=== PATIENT | male | born 1960 | race Caucasian/White ===

== ENCOUNTER → 2020-06-19 10:11 | Outpatient (CLI) | payer MEDICARE, SELFPAY ==
--- NOTE | 2020-06-19 10:19 | CA_ITS ---
APPROVED REPORT EXAM: Comprehensive 2D, Doppler, and color-flow Echocardiogram Customer Service Driver: Jessica Henry RVT Ht: 6 ft 2 in Wt: 240lbs BSA: 2.35 BP: 110/70 mmHg Indications: CAD,HTN,SMOKER 2D Dimensions LVOT 2.27 cm (M/F) 1.5-2.5 M-Mode Dimensions RVDd 3.02 cm (0.9-2.6) LA Diam 3.68 cm (1.9-4.0) LVDd 5.44 cm (3.5-5.7) Ao Diam 3.37 cm (2.0-3.7) LVDs 3.82 cm (3.5-5.7) IVSd 1.40 cm (0.6-1.1) PWd 0.98 cm (0.6-1.1) EF (Teich) 56.40% FS 29.80% EDV (Teich) 143.70 mL ESV (Teich) 62.70 mL LV Diastology E Decel Time 150.00 (160-240 msec) E/A Ratio 0.6 MED E' 6.90 (< 7 cm/sec) E'/MED E' Ratio 7.70 (>14) LAT E' 9.10 (<10 cm/sec) E/LAT E' Ratio 5.84 (>14) Mitral Valve MV E Max Danie. 53.00 (40-130 cm/s) MV A Velocity 85.00 (40-130 cm/s) E/A Ratio 0.62 MV Decel. Time 150.00 (160-240 ms) MV PHT 44.00 ms Pulmonary Valve PV Peak Velocity 78.00 (50-150 cm/s) Tricuspid Valve TR P. Velocity 194.00 cm/s RAP Estimate 10.00 mmHg RVSP 25.10 mmHg Left Ventricle Left atrium is mildly enlarged, left ventricle is normal size, mild concentric left ventricular hypertrophy, visually estimated ejection fraction 50% with no regional wall motion abnormality, grade 1 diastolic dysfunction seen with tissue Doppler evidence of raise left atrial pressure. Right Ventricle Right atrium and right ventricle are normal size and contractility. Aortic Valve Aortic valve is minimally thickened and calcified, there is no aortic stenosis or aortic insufficiency. Mitral Valve Mitral valve is grossly normal, there is mild mitral regurgitation. Tricuspid Valve Tricuspid valve is grossly normal, there is mild tricuspid regurgitation, tricuspid regurgitation jet velocity is inadequate for calculation of the right ventricular systolic pressure. Pulmonic Valve Pulmonic valve is poorly visualized. Great Vessels Aortic root is normal size. Pericardium No significant pericardial effusion noted. Conclusion 1. Mildly enlarged left atrium, normal left ventricular size, mild concentric left ventricular hypertrophy, visually estimated ejection fraction 50% with no regional wall motion abnormality, grade 1 diastolic dysfunction seen without tissue Doppler evidence of raise left atrial pressure. 2. Mild mitral and tricuspid regurgitation. 3. No significant pericardial effusion noted. Electronically signed by : Leon Garcia, 06/20/2020 06:01:57
== END ==
PROVIDERS: PCP Emergency Medicine; Visit Provider Emergency Medicine
DX: R07.89 Other chest pain (principal); I25.10 Atherosclerotic heart disease of native coronary artery without angina pectoris; I10 Essential (primary) hypertension
CPT/HCPCS: 93306

== ENCOUNTER → 2020-07-17 06:51 | Outpatient (CLI) | payer MEDICARE, SELFPAY ==
--- NOTE | 2020-07-17 06:52 | NM_ITS ---
APPROVED REPORT Exam: Nuclear Stress Test Indication: Chest pain, CAD, HTN, DM, High cholesterol, Tobacco use, Family history Patient Location: Outpatient Stress Tech: Brenda Louie [place] Tech:Yamilex Lee, ARRT, RT (R)(N) Ht: 6 ft 2 in Wt: 245 lbs HR: 58 bpm BP: 122/75 mmHg BSA: 2.37 m2 BMI: 31.4 History: Chest pain, CAD, HTN, DM, High cholesterol, Tobacco use, Family history Procedure: Patient received a 0.4 mg of intravenous Lexiscan, resting heart rate 58 bpm, resting blood pressure 122/75 mmHg, with Lexiscan maximum heart rate achived was 91 bpm which is Less than 85 % of the maximum predicted heart rate and blood pressure was 102/68 mmHg. With Lexiscan, patient denied any complaint of chest pain. Electrocardiogram Resting electrocardiogram showed sinus rhythm nonspecific ST-T changes possible inferior infarct age-indeterminate premature ventricular complexes, with Lexiscan there is less than 1.[address] segment depression noted from the baseline EKG. The EKG portion of the Lexiscan is nondiagnostic. Cardiac Stress and Resting SPECT Images: Cardiac Stress and Resting SPECT images were obtained using technetium 99m Myoview 32.7 mCi stress and 10.54 mCi at rest. Gated SPECT for analysis of segmental wall motion and calculation of the ejection fraction also done. Cardiac stress and resting SPECT images show a moderate to large sized area of fixed defect involving the inferior, posterior basal, inferior apical and apical wall consistent with area of extensive myocardial scarring without significant amber-infarct ischemia, computer derived ejection fraction 34% with marked inferior, posterior basal, inferior apical and apical wall hypokinesis. Left ventricle is dilated with the stress and rest, right ventricle is mildly enlarged with normal contractility. Conclusion: 1. The EKG portion of the Lexiscan is nondiagnostic. 2. Scintigraphic evidence of myocardial scarring involving the inferior, posterior basal, inferior apical and apical wall without significant amber-infarct ischemia, computer derived ejection fraction is 34% with segmental wall motion abnormalities described above, left ventricle is dilated both stress and rest, right ventricle is mildly enlarged with normal contractility. 3. Abnormal Lexiscan Myoview study. Electronically signed by : Leon Garcia, 07/17/2020 20:50:15
--- NOTE | 2020-07-17 06:52 | CA_ITS ---
APPROVED REPORT Exam: Pharmacologic Technologist: Brenda Louie Ht: 6 ft 2 in Wt: 245 lbs BSA: 2.37 m2 HR: 58 bpm BP: 122/75 mmHg Indications: Chest pain Medical History Medications: Lisinopril,,,,, Metformin,,,,, Stress Test Details Test: LEXISCAN Reversal agent Aminophyline 100.0 mg, given intravenously for nausea. HR Resting HR: 58 bpm Max Heart Rate (APMHR): 160 bpm Max HR Achieved: 93 bpm Target HR (85% APMHR): 136 bpm % of APMHR: 58 Recovery HR: 58 bpm BP Resting BP: 122.0/75.0 mmHg Max BP: 122.0/75.0 mmHg Recovery BP: 122.0/81.0 mmHg ECG Clinical Exercise duration: 04:00 min Highest Stage Achieved: Exercise capacity: 1.0 METs Stress ECG Conclusion Resting EKG: Sinus bradycardia, PVC, ST-T abnormalities, cannot rule out old inferior IN. Symptoms: Shortness of air, malaise. No chest pain. Arrhythmias/Ectopy: Frequent isolated, monomorphic PVCs. ST-T Changes: Exaggeration of baseline ST-T abnormalities. Conclusion: Non-diagnostic Lexiscan stress. Myoview images reported separately. Test Summary REST . . . . . . . Resting REST 05:34 . . 58 . 122/ 75 . . Stage 1 . . . . . . . Myoview Injected Stage 1 01:00 . . 80 . . . . Stage 2 01:00 . . 91 . 102/ 68 . . Stage 3 01:00 . . 82 . 107/ 71 . . Stage 4 01:00 . . 72 . 117/ 76 . Stop exercise at 04:00 RECOVERY 01:00 . . 68 . . . . RECOVERY 02:00 . . 64 . 122/ 73 . . RECOVERY 03:00 . . 65 . 122/ 73 . . RECOVERY 04:00 . . 65 . 122/ 73 . . RECOVERY 05:00 . . 60 . 122/ 73 . . RECOVERY 06:00 . . 60 . 122/ 81 . . RECOVERY 06:03 . . 63 . 122/ 81 . . Electronically signed by : Leon Garcia, 07/17/2020 20:36:36
--- NOTE | 2020-07-17 08:29 | HMH.ITSHM ---
Current Home Medications as stated by this patient Jimmie La or customer engagement representative. []LISINOPRIL METFORMIN
== END ==
PROVIDERS: PCP Emergency Medicine; Visit Provider Urology
DX: E11.69 Type 2 diabetes mellitus with other specified complication (principal); E78.5 Hyperlipidemia, unspecified; F17.200 Nicotine dependence, unspecified, uncomplicated; I10 Essential (primary) hypertension; I25.118 Atherosclerotic heart disease of native coronary artery with other forms of angina pectoris; R94.31 Abnormal electrocardiogram [ECG] [EKG]; R07.9 Chest pain, unspecified; Z79.84 Long term (current) use of oral hypoglycemic drugs
CPT/HCPCS: 78452; 93017; A9502; J2785

== ENCOUNTER 2020-07-21 17:56 | Observation (INO) | payer MEDICARE, SELFPAY ==
[2020-07-21] VITALS (9 sets, daily range): BP systolic 89–137; BP diastolic 54–93; PULSE 57–93; RESP 14–19; TEMP 36.6–37.2; O2SAT 95–99; BMI 29.9; BMI 28.4
--- NOTE | 2020-07-21 18:10 | HMH.EDGENADL ---
ED Disposition Clinical Impression: Unstable angina Disposition: Admitted As Inpatient Condition on Discharge: Fair Referrals: PCP,No [Primary Care Provider] - - Critical Care Critical Care Time: No Attestation: On , the high probability of a clinically significant, sudden or life threatening deterioration of the following system(s) required my full and direct attention, intervention and personal management. The time I documented below is in addition to time spent performing reported procedures but includes the following listed in this critical care notation. Medical Decision Making - Ernesto Inquiry Pt receiving controlled substance: No Vital Signs: 07/21/20 17:57 Temperature 99.0 F Temperature Source Oral Pulse Rate [Right Radial] 93 H Respiratory Rate 18 Blood Pressure [Right Arm] 134/93 H Blood Pressure Mean [Right Arm] 106 Blood Pressure Source [Right Arm] Automatic Cuff Blood Pressure Position [Right Arm] Sitting 02 Sat by Pulse Oximetry 96 Oxygen Delivery Method Room Air - Lab Data Lab Results 07/21/20 18:07: WBC 10.7, RBC 5.19, Hgb 15.0, Hct 44.7, MCV 86.2, MCH 29.0, MCHC 33.6, RDW 14.1, Plt Count 272, MPV 7.6, Neut % (Auto) 69.8, Lymph % (Auto) 22.9, [place] % (Auto) 4.6, Eos % (Auto) 2.4, Baso % (Auto) 0.3, Neut # (Auto) 7.5, Lymph # (Auto) 2.5, [place] # (Auto) 0.5, Eos # (Auto) 0.3, Baso # (Auto) 0.0 07/21/20 18:07: Sodium 141, Potassium 3.6, Chloride 105, Carbon Dioxide 25, Anion Gap 14.6, BUN 8 L, Creatinine 1.00, Estimated Creat Clear 121, Estimated GFR 76, Est GFR ( Amer) 92, Glucose 112 H, Calcium 9.8, Troponin I 0.05 H Result diagrams: 07/21/20 18:07 07/21/20 18:07 Orders (Tests/Meds): ED MEDICATIONS Generic Name Dose Route Start Last Admin Trade Name Freq PRN Reason Stop Dose Admin Bisoprolol Fumarate 5 mg 07/21/20 19:05 Bisoprolol 5mg Tablet PO 08/20/20 19:04 DAILY MELLISA Nitroglycerin 0.4 mg 07/21/20 18:42 Nitroglycerin 0.4mg Sl Tablet SL 08/20/20 18:41 Q5MINP PRN Chest Pain Nitroglycerin 1 gm 07/21/20 19:15 Nitroglycerin 1 Gm Ointment TD 08/20/20 19:14 Q6H MELLISA Discontinued Medications Generic Name Dose Route Start Last Admin Trade Name Freq PRN Reason Stop Dose Admin Aspirin 324 mg 07/21/20 18:25 07/21/20 18:38 Aspirin 81mg Chewable Tablet PO 07/21/20 18:26 324 mg ONCE ONE Administration Ondansetron HCl 4 mg 07/21/20 18:42 07/21/20 18:50 Ondansetron 4mg/2ml Vial IV 07/21/20 18:43 4 mg ONCE ONE Administration ORDERS Category Date Time Status XR chest 2V Stat Exams 07/21/20 18:25 Taken Troponin I Q3H Lab 07/21/20 21:30 Ordered Troponin I Q3H Lab 07/22/20 00:30 Ordered - ECG Data Tracing #1 EKG interpreted by Erasmo Mckeon MD: Rhythm: sinus Rate: 90 [place]: normal Ectopy: none Conduction: normal ST Segment Changes: none T Wave Changes: none Q Waves: Inferior No evidence of acute ischemia or injury Prior electrocardiagrams reviewed. No change from prior tracings. - Physician Consults Physician Consulted: Calixto Time: 19:06 Reason -: Cardiology Eval/Care Comment/Response: Recommends admission. Bisoprolol 5 mg now and daily. Additional Consult: Shelly - FELECIA Score for Non-Stemi Age of Patient: 60-69 years old Heart Rate: 90-109 bpm Systolic Blood Pressure: 120-139 mmhg Serum Creatinine: 0.80-1.19 mg/dl CHF [place] Class: I-No CHF Other Risk Factors: Elevated Cardiac Enzymes or Biomarkers Non-Stemi Risk Score: 128 Medical Decision Narrative: Heart Pathway Score is:5 High Risk General Adult HPI - General Stated complaint: CP Time Seen by Provider: 07/21/20 18:20 - History of Present Illness HPI narrative: Patient arrives by ambulance with complaint of chest pain. Says the chest pain started an hour ago while at rest. Describes the pain in his anterior chest radiating to his right jaw. Currently 2/10, was 8/10 at onset. Denies shortness of breath
--- NOTE | 2020-07-21 18:25 | XR_ITS ---
PROCEDURE: XR CHEST 2V CLINICAL HISTORY: chest pain Heart disease, smoker COMPARISON: No exams were available for comparison FINDINGS: The cardiomediastinal silhouette and pulmonary vascularity are within normal limits. Minimal atelectatic or fibrotic change in the left lung base. There are old fractures of the right 4th and 5th ribs. There are degenerative changes in the thoracic spine. IMPRESSION: Minimal atelectatic or fibrotic change in the left lung base otherwise negative Dictated by: Rosales Rosa MD 07/22/2020 07:10 Rosales Rosa MD in OV 07/22/2020 07:10
--- NOTE | 2020-07-21 18:26 | ECG_ITS ---
APPROVED REPORT Exam: Resting ECG HR:90 bpm ECG Measurements Heart Rate 90 AXES VA 178 P 93 QRSd 108 QRS 75 QT 380 T 27 QTc 464 Conclusion Normal sinus rhythm Inferior infarct, age undetermined Abnormal ECG Electronically signed by : Dony Rosas, 07/22/2020 08:39:30
[2020-07-21 18:33] LABS: Basophils % 0.3 % (0.1-2.0); Eosinophils # 0.3 K/mm3 (0.0-0.4); Eosinophils % 2.4 % (0.1-12.0); Hematocrit 44.7 % (42.0-52.0); Lymphocytes # 2.5 K/mm3 (0.7-4.5); Lymphocytes % 22.9 % (10-50); Mean Corpuscular HGB Conc 33.6 g/dL (31.8-35.4); Mean Corpuscular Volume 86.2 fl (80-94); Mean Platelet Volume 7.6 fl (7.4-10.4); Monocytes # 0.5 K/mm3 (0.1-1.0); Monocytes % 4.6 % (1.7-9.3); Neutrophils # 7.5 K/mm3 (1.8-7.8); Neutrophils % 69.8 % (37.0-80.0); Platelet Count 272 K/mm3 (142-424); Red Blood Count 5.19 M/mm3 (4.60-6.20); Red Cell Distribution Width 14.1 % (11.5-17.5); White Blood Count 10.7 K/mm3 (4.8-10.8)
[2020-07-21 18:38] LABS: Anion Gap 14.6 mEq/L (5-15); Blood Urea Nitrogen 8 mg/dl (9-20); Calcium 9.8 mg/dl (8.4-10.2); Carbon Dioxide 25 mmol/L (22.0-30.0); Chloride 105 mmol/L (98-107); Creatinine Clearance Estimated 121 mL/min (50-200); Estimated Glomerular Filt Rate 76 ml/min (>60); GFR (African American) 92 ML/MIN (>60); Glucose 112 mg/dl (74-100); Potassium 3.6 mmoL/L (3.5-5.1); Sodium 141 mmol/L (136-145)
--- NOTE | 2020-07-21 18:43 | PC.NURSE ---
Pt keeps removing his vs monitors and running out to the bathroom. It has been explained to him that he needs to leave them on so we can help him feel better. He verbalized understanding but continues to remove everything.
[2020-07-21 18:50] LABS: Troponin I 0.05 ng/ml (0.00-0.034)
[2020-07-21 19:19] LABS: Adenovirus,PCR Not Detected (NotDetected); Bordetella Pertussis Not Detected (NotDetected); Chlamydophila Pneumoniae, PCR Not Detected (NotDetected); Coronavirus 19, PCR Not Detected (NotDetected); Coronavirus 229E Not Detected (NotDetected); Coronavirus NL63 Not Detected (NotDetected); Coronavirus OC43 Not Detected (NotDetected); Coronovirus HKU1,PCR Not Detected (NotDetected); Human Metapneumovirus Not Detected (NotDetected); Influenza A, PCR Not Detected (NotDetected); Influenza AH1, 2009 Not Detected (NotDetected); Influenza AH1, PCR Not Detected (NotDetected); Influenza AH3,PCR Not Detected (NotDetected); Influenza B, PCR Not Detected (NotDetected); Mycoplasma Pneumoniae, PCR Not Detected (NotDetected); Parainfluenza 1, PCR Not Detected (NotDetected); Parainfluenza 2, PCR Not Detected (NotDetected); Parainfluenza 3, PCR Not Detected (NotDetected); Parainfluenza 4, PCR Not Detected (NotDetected); Respiratory Syncytial Virus Not Detected (NotDetected); Rhinovirus/Enterovirus Not Detected (NotDetected)
--- NOTE | 2020-07-21 21:35 | PC.NURSE ---
patient up to floor via wheelchair,RN.
[2020-07-21 22:28] LABS: Troponin I 0.33 ng/ml (0.00-0.034)
[2020-07-21 22:40] LABS: POC Glucose,Bedside 197 (70-110)
--- NOTE | 2020-07-21 22:41 | PC.NURSE ---
notified of troponin
--- NOTE | 2020-07-21 23:00 | ECG_ITS ---
APPROVED REPORT Exam: Resting ECG HR:55 bpm ECG Measurements Heart Rate 55 AXES FL 180 P 43 QRSd 112 QRS 58 QT 436 T 6 QTc 417 Conclusion Sinus bradycardia Inferior infarct, age undetermined Abnormal ECG Electronically signed by : Dony Rosas, 07/22/2020 08:39:06
--- NOTE | 2020-07-21 23:48 | PC.NURSE ---
Repeat EKG obtained per MD Bravo order. Read by Shelly and MD Rivera in ER. No new changes. Shelly ordered loading dose of Brilinta 180 mg PO. Orders carried out. Pt is not c/o any CP at this time.
[2020-07-22] VITALS: PULSE 50
[2020-07-22 01:10] LABS: Troponin I 0.62 ng/ml (0.00-0.034)
--- NOTE | 2020-07-22 02:43 | PC.NURSE ---
Pt is resting in bed. C/O gastric discomfort. Was given some milk and symptoms improved. Pt states that his stomach feels better. Repeat troponin was called back to MD Bravo earlier. Protonix 40 mg IV daily and lovenox 100 mg IV Q12 hr was ordered and carried out. Pt is sinus shanell on telemetry. BP is trending down. Of note, He is on nitro paste. Will continue to monitor VS and symptoms. Per MD Bravo, if pt becomes symptomatic, obtain additional troponin and ekg. AM troponin ordered.
[2020-07-22 04:00] VITALS: BP 91/42; PULSE 50; PULSE 51; RESP 19; TEMP 36.9; O2SAT 99
[2020-07-22 04:54] VITALS: BMI 28.3
[2020-07-22 05:24] LABS: POC Glucose,Bedside 135 (70-110)
[2020-07-22 08:00] VITALS: BP 95/50; PULSE 50; PULSE 55; RESP 18; TEMP 37; O2SAT 98
[2020-07-22 08:00] LABS: Troponin I 0.65 ng/ml (0.00-0.034)
--- NOTE | 2020-07-22 09:20 | HMH.HP ---
*Admission Date: 07/21/20 *Chief complaint: chest pain *History of present illness: this pt with hx of abn myoview presents to the ed -patient arrives by ambulance with complaint of chest pain. Says the chest pain started an hour ago while at rest. Describes the pain in his anterior chest radiating to his right jaw. Currently 2/10, was 8/10 at onset. Denies shortness of breath but he did have nausea with it. States he has coronary artery disease with stent placement proximately 15 years ago. Just recently saw Dr. De Luna in the office couple of days ago and has been set up for a left heart cath. States his ejection fraction is 35%. States he also had an episode of chest pain last night that lasted 2-1/2 hours. He had diaphoresis with that, but not today. The patient is a smoker. He is treated for hypertension and hyperlipidemia and diabetes. pt was admitted for eval and treatment [facility] History I have reviewed the patient's past medical history: Yes Medical History: Reports:: Anxiety, Coronary Artery Disease, Diabetes Mellitus Type 2, Gastroesophageal Reflux Disease(GERD), Hyperlipidemia, Hypertension Denies:: Cancer, MRSA *Have you ever received a pneumonia vaccine?: No *Have you received a flu vaccine this season?: No Laterality Cases: Bilateral: Tonsillectomy Other Surgeries: Yes: No Previous Surgery, Cardiac Catheterization Amputation: No - *Social History Last grade of school completed: Advanced degree Smoking Status: Current every day smoker Tobacco Type: cigarettes # Packs/Day (cigarettes): 1 Alcohol Intake: former Substance Use Type: prescription drug *Occupational Status:: disabled Housing: custodial Household Members: none *Travel in the last 8 weeks: None - Psychiatric History Pschychiatric History:: Reports:: Anxiety Family Hx:: Diabetes, Heart Attack, Hyperlipidemia, Hypertension, Stroke, Substance abuse, Alcoholism, Mental illness Review of Systems - Review of Systems Review of systems:: pertinent systems reviewed and negative unless documented below - Constitutional Denies fever(s) - Eyes Denies change in vision - ENT Denies sore throat - *Cardiovascular Reports chest pain at rest, Reports shortness of breath - *Respiratory Denies cough - *Gastrointestinal Denies abdominal pain - *Musculoskeletal Denies joint pain - Integumentary/Breasts Denies rash - *Neurologic Denies seizure-like activity - Psychiatric Denies confusion Meds Home Medications Medication Instructions Recorded Confirmed Type lisinopril 10 mg tablet 10 mg PO DAILY 06/25/20 07/21/20 History metformin 500 mg tablet 500 mg PO BID 06/25/20 07/21/20 History Atorvastatin Calcium [Lipitor 20mg 20 mg PO HS 07/21/20 07/21/20 History Tab] Benztropine Mesylate 0.5 mg PO BID 07/21/20 07/21/20 History PARoxetine HCl [Paxil] 20 mg PO DAILY 07/21/20 07/21/20 History Quetiapine Fumarate 200 mg PO HS 07/21/20 07/21/20 History Allergies Allergy/AdvReac Type Severity Reaction Status Date / Time No Known Allergies Allergy Verified 07/19/20 09:13 Exam Vital signs and Labs for Last 24 Hours: Temp Pulse Resp BP Pulse Ox 98.6 F 55 L 18 95/50 L 98 07/22/20 08:00 07/22/20 08:00 07/22/20 08:00 07/22/20 08:00 07/22/20 08:00 Laboratory Results - last 24 hr 07/21/20 18:07: WBC 10.7, RBC 5.19, Hgb 15.0, Hct 44.7, MCV 86.2, MCH 29.0, MCHC 33.6, RDW 14.1, Plt Count 272, MPV 7.6, Neut % (Auto) 69.8, Lymph % (Auto) 22.9, [place] % (Auto) 4.6, Eos % (Auto) 2.4, Baso % (Auto) 0.3, Neut # (Auto) 7.5, Lymph # (Auto) 2.5, [place] # (Auto) 0.5, Eos # (Auto) 0.3, Baso # (Auto) 0.0 07/21/20 18:07: Sodium 141, Potassium 3.6, Chloride 105, Carbon Dioxide 25, Anion Gap 14.6, BUN 8 L, Creatinine 1.00, Estimated Creat Clear 121, Estimated GFR 76, Est GFR ( Amer) 92, Glucose 112 H, Calcium 9.8, Troponin I 0.05 H 07/21/20 19:14: Chlamy pneumoniae PCR Not detected, Adenovirus (PCR) Not detected, B. pertussis DNA (P
[2020-07-22 09:28] LABS: Alanine Aminotransferase 15 U/L (12-78); Albumin Level 3.7 g/dl (3.5-5.0); Alkaline Phosphatase 71 U/L (38-126); Aspartate Amino Transferase 25 U/L (17-59); Bilirubin,Direct 0.3 mg/dl (0.0-0.4); Bilirubin,Indirect 0.3 mg/dL (0.0-0.9); Bilirubin,Total 0.6 mg/dl (0.2-1.3); Bilirubin,Unconjugated 0.3 mg/dL (0.0-1.1); Total Protein,Serum 6.5 g/dl (6.3-8.2)
[2020-07-22 12:00] VITALS: PULSE 60
--- NOTE | 2020-07-22 12:22 | HMH.PHAVTE ---
[facility] Pharmacy VTE Monitoring - Patient Demographics Admission date: 07/21/20 Report Date: 07/22/20 Time: 12:22 Allergies/Adverse Reactions: Patient Allergies No Known Allergies Allergy (Verified 07/19/20 09:13) Height: 1.91 m Weight: 103.573 kg Patient Problems: Current Active Problems Unstable angina (Acute) Non-ST elevated myocardial infarction (non-STEMI) (Acute) Overweight (BMI 25.0-29.9) (Acute) Right bundle branch block (Chronic) Tobacco dependence syndrome (Chronic) HLD (hyperlipidemia) (Chronic) HTN (hypertension) (Chronic) Diabetes mellitus (Chronic) Coronary artery disease (Chronic) - VTE Risk Labs: VTE Related Lab Results Hgb 15.0 g/dL (14.1-18.0) 07/21/20 18:07 Hct 44.7 % (42.0-52.0) 07/21/20 18:07 Plt Count 272 K/mm3 (142-424) 07/21/20 18:07 BUN 8 mg/dl (9-20) L 07/21/20 18:07 Creatinine 1.00 mg/dl (0.66-1.25) 07/21/20 18:07 Estimated Creat Clear 121 mL/min (50-200) 07/21/20 18:07 VTE Risk Level: Moderate Risk - Prophylaxis VTE Prophylaxis Ordered?: Yes Types of VTE Prophylaxis: TEDS Knee High, Pharmacological Location of Applied Device: Bilateral Lower Extremeties Pharmacologic Type: Enoxaparin
--- NOTE | 2020-07-22 12:23 | HMH.PHAINT ---
MEDICATION RECONCILIATION COMPLETED ON PATIENT USING EXTERNAL FILL HISTORY FROM PHARMACY. -NASREEN EWING, BRYAND
[2020-07-22 12:36] LABS: POC Glucose,Bedside 127 (70-110)
[2020-07-22 16:00] VITALS: BP 105/60; PULSE 50; PULSE 80; RESP 20; TEMP 36.7; O2SAT 98
[2020-07-22 17:16] LABS: POC Glucose,Bedside 210 (70-110)
--- NOTE | 2020-07-22 17:49 | PC.NURSE ---
Pt has been pleasant and cooperative this shift. A&O X4. No complaints of pain or SOA. Pt is on room air with sats. >90%. Telemetry reveals NSR/SB. Lungs CTA. Skin is C/D/I. No edema noted. Pt ambulates independently to/from the bathroom, throughout the room, and in the hallway. 20 G peripheral IV in the RT AC is patent and SL. VSS. Call light within reach. Will continue to monitor.
[2020-07-22 20:00] VITALS: BP 133/74; PULSE 55; PULSE 60; RESP 17; TEMP 36.6; O2SAT 99
[2020-07-22 21:11] LABS: POC Glucose,Bedside 131 (70-110)
[2020-07-23] VITALS (22 sets, daily range): BP systolic 90–135; BP diastolic 51–90; PULSE 50–82; RESP 13–20; TEMP 36.3–37; O2SAT 95–100; BMI 29.1; BMI 29.0
--- NOTE | 2020-07-23 05:29 | PC.NURSE ---
pt is AxOx4, no complaints of SOA or chest pain, remains on room air with sats 95-99%, lungs CTA, HR 55-57, telemetry shows NSR and SB
[2020-07-23 07:04] LABS: POC Glucose,Bedside 137 (70-110)
--- NOTE | 2020-07-23 08:01 | HMH.CNCARD ---
History of Present Illness Consult date: 07/23/20 Requesting physician: Chuckie Rivera Consult reason: chest pain Chief complaint: chest pain Additional Medical History:: 1. 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 NonStemi (07/21/20) a. Elevated troponins 3. Coronary Artery Disease a. Stent (15 years ago) 4. Cardiomyopathy a. EF 35% (06/17) 5. Type 2 Diabetes 6. Essential hypertension 7. Hyperlipidemia a. On statin therapy. 8. Tobacco cessation 9. Abnormal cardiovascular study a. 07/19: Abnormal stress test History of present illness: 60-year-old male presented to ED on 07/21/20 with chest pain accompanied with nausea. Patient stated he had been having some anterior chest wall pain radiating to his right jaw 1 hour prior to presenting to the emergency room. Patient stated his chest pain on a pain scale was 8/10. Patient stated his chest pain was finally relieved when he came to the emergency room. Patient does have history of coronary artery disease. Patient stated he had stent placement 15 years ago at [facility]. Patient denies chest pain, tightness or pressure. Patient denies shortness of breath. No swelling of the lower extremities noted. Patient denies dizziness or palpitations. Patient does have history of diabetes type 2, hypertension, hyperlipidemia and cardiomyopathy. Patient was last seen in cardiology office in 07/19/20, to discuss abnormal stress test and abnormal echocardiogram. Patient admits to smoking for over 20+ years. Patient states he smokes at least 1 pack of cigarettes per day. Patient states history of drug and alcohol abuse in 2004. Denies any intake of drug or alcohol abuse since that time. Initial ED work-up was performed. Labs were unremarkable. Patient noted to have elevated troponins. Last troponin was elevated at 0.65. Chest x-ray revealed minimal atelectasis in the left lung base otherwise negative. Initial EKG revealed sinus rhythm with no ectopy or ST ischemia. Myoview stress test: Conclusion: 1. The EKG portion of the Lexiscan is nondiagnostic. 2. Scintigraphic evidence of myocardial scarring involving the inferior, posterior basal, inferior apical and apical wall without significant amber-infarct ischemia, computer derived ejection fraction is 34% with segmental wall motion abnormalities described above, left ventricle is dilated both stress and rest, right ventricle is mildly enlarged with normal contractility. 3. Abnormal Lexiscan Myoview study. Echo: Conclusion 1. Mildly enlarged left atrium, normal left ventricular size, mild concentric left ventricular hypertrophy, visually estimated ejection fraction 50% with no regional wall motion abnormality, grade 1 diastolic dysfunction seen without tissue Doppler evidence of raise left atrial pressure. 2. Mild mitral and tricuspid regurgitation. 3. No significant pericardial effusion noted. Due to typical angina and known history of coronary artery disease, would recommend a left heart catheterization. Discuss the risk and benefits of the left heart catheterization through right wrist access with patient. Patient is agreeable to procedure. Discussed plan of care with Dr. Rivera. Pending on the results of the left heart catheterization, may recommend medication and treatment regimen changes. Thank you for allowing cardiology to participate in the care of this patient. SCAI: A (8) Indication 55. [facility] History I have reviewed the patient's past medical history: Yes Medical History: Reports:: Anxiety, Coronary Artery Disease, Diabetes Mellitus Type 2, Gastroesophageal Reflux Disease(GERD), Hyperlipidemia, Hypertension Denies:: Cancer, MRSA *Have you ever received a pneumonia vaccine?: No *Have you received a flu vaccine this season?: No Laterality Cases: Bilateral: Tonsillectomy Other Surgeries: Yes: No Previous Surgery, Cardiac Catheterizat
--- NOTE | 2020-07-23 09:05 | IR_ITS ---
APPROVED REPORT Patient Location: Inpatient Ecological Modeler: ROLO Olvera RT (R) PROCEDURES Left heart catheterization Left ventriculogram Selective coronary angiogram Drug-eluting stent deployment to the proximal dominant circumflex artery INDICATION Unstable angina, Coronary artery disease Informed consent was obtained prior to the procedure. COMPLICATIONS NONE Estimated Blood Loss: LESS THAN 10 ML TECHNIQUE One percent lidocaine used to anesthetize the right anterior aspect of the wrist. The right radial artery was accessed via the Seldinger technique. A 6 [place] sheath was placed in the right radial artery. 2.5 mg of verapamil, 800 mcg of nitroglycerin, 1mg Lidocaine and 5000 U Heparin were given through the arterial sheath. The trap catheter and a 4 [place] JL4 catheter used to perform left heart catheterization left ventriculogram and selective coronary angiogram. At the end of the diagnostic angiogram therapeutic heparin was administered giving a therapeutic ACT and an EBU 375 guide catheter was used to intubate the left main artery. The Choice PT wire was placed distally. A 3 mm x 38 mm resolute [place] stent was deployed at 12 ko reducing the stenosis. An additional 3 mm x 15 mm resolute [place] stent was then placed distal to the first stent yet still overlapping it at 14 ko. The balloon was brought back and deployed at 1416 and 18 ko each time coming more more proximally until the balloon wind up in the very proximal segment of the circumflex artery. After achieving excellent angiographic results with BETTY-3 flow down the vessel before and after the procedure the apparatus was removed the sheath was removed and hemostasis was achieved using TR banding patient was transferred to the postop holding area stable addition ANGIOGRAPHIC RESULTS The left main artery Normal The left anterior descending artery Has a stent in the proximal through mid segment which is widely patent free of in-stent restenosis with excellent proximal distal transitioning. A large stent originates off the first diagonal artery and is widely patent with excellent transitioning distally. The circumflex artery Is a large codominant vessel with an 80% concentric stenosis at the origin of the large first obtuse marginal artery The right coronary artery Is a codominant vessel and has proximal 10 to 20% stenosis followed by mid vessel stent which is widely patent free of in-stent restenosis. Distally this transitions into a 20 to 30% stenosis followed by an additional 30 to 40% stenosis The LEUNG ventriculogram reveals Not performed The left ventricular end-diastolic pressure Not measured IMPRESSION Severe stenosis in a large first obtuse marginal artery of a codominant circumflex artery Successful stenting of the proximal mid circumflex artery extending into the large obtuse marginal artery reducing the severe stenosis to 0% Widely patent proximal and mid LAD stents with widely patent bifurcating first diagonal artery stents Widely patent stents in a codominant mid to distal right coronary artery PLAN 1. Dual antiplatelet therapy 2. LDL less than 55 3. Cardiac rehabilitation 4. Avoidance of tobacco products 5. Risk factor modification Electronically signed by : Pablo De Luna, 07/23/2020 14:42:02
[2020-07-23 09:33] LABS: Basophils % 0.3 % (0.1-2.0); Eosinophils # 0.2 K/mm3 (0.0-0.4); Eosinophils % 2.6 % (0.1-12.0); Hematocrit 42.2 % (42.0-52.0); Hemoglobin 14.3 g/dL (14.1-18.0); Lymphocytes # 1.6 K/mm3 (0.7-4.5); Lymphocytes % 20.1 % (10-50); Mean Corpuscular HGB Conc 33.8 g/dL (31.8-35.4); Mean Corpuscular Hemoglobin 29.2 pg (27.0-31.2); Mean Corpuscular Volume 86.4 fl (80-94); Mean Platelet Volume 8.4 fl (7.4-10.4); Monocytes # 0.4 K/mm3 (0.1-1.0); Monocytes % 5.3 % (1.7-9.3); Neutrophils # 5.6 K/mm3 (1.8-7.8); Neutrophils % 71.6 % (37.0-80.0); Platelet Count 231 K/mm3 (142-424); Red Blood Count 4.89 M/mm3 (4.60-6.20); White Blood Count 7.9 K/mm3 (4.8-10.8)
[2020-07-23 09:48] LABS: Anion Gap 10.2 mEq/L (5-15); Blood Urea Nitrogen 9 mg/dl (9-20); Calcium 9.5 mg/dl (8.4-10.2); Carbon Dioxide 29 mmol/L (22.0-30.0); Chloride 106 mmol/L (98-107); Creatinine Clearance Estimated 107 mL/min (50-200); Estimated Glomerular Filt Rate 68 ml/min (>60); GFR (African American) 83 ML/MIN (>60); Glucose 136 mg/dl (74-100); Potassium 4.2 mmoL/L (3.5-5.1); Sodium 141 mmol/L (136-145)
--- NOTE | 2020-07-23 10:06 | SW/DCPLANNER ---
Addendum entered by Hyun Hung 07/24/20 10:53: I have set up [facility] [employer] for this patient. [facility] has stated that patient will need to be private pay and they will pay [facility] [employer] once patient returns to facility. Addendum entered by Hyun Hung 07/24/20 09:31: Per [facility] with [facility] this patient can discharge back without another COVID swab. Patient had a COVID swab on 07/21 which was negative and will not require another swab. I will set up [employer] once patient is ready per nursing. Patient will discharge today. Original Note: This patient currently resides at [facility]. I have informed Baltazar/Lisa rodríguez that this patient will be having a heart cath today. I will follow up with both once I have heart cath results are back.
--- NOTE | 2020-07-23 11:44 | PC.NURSE ---
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
--- NOTE | 2020-07-23 14:38 | HMH.ACPN2 ---
Internal Medicine - PN: Subj *Date: 07/23/20 *Time: 08:15 Exam Vital signs and Labs for Last 24 Hours: Temp Pulse Resp BP Pulse Ox 98.6 F 61 18 110/68 96 07/23/20 08:00 07/23/20 13:47 07/23/20 13:45 07/23/20 13:45 07/23/20 13:45 Laboratory Results - last 24 hr 07/22/20 16:54: POC Glucose 210 H 07/22/20 20:58: POC Glucose 131 H 07/23/20 06:39: POC Glucose 137 H 07/23/20 09:18: WBC 7.9 D, RBC 4.89, Hgb 14.3, Hct 42.2, MCV 86.4, MCH 29.2, MCHC 33.8, RDW 14.0, Plt Count 231, MPV 8.4, Neut % (Auto) 71.6, Lymph % (Auto) 20.1, [place] % (Auto) 5.3, Eos % (Auto) 2.6, Baso % (Auto) 0.3, Neut # (Auto) 5.6, Lymph # (Auto) 1.6, [place] # (Auto) 0.4, Eos # (Auto) 0.2, Baso # (Auto) 0.0 07/23/20 09:18: Sodium 141, Potassium 4.2, Chloride 106, Carbon Dioxide 29, Anion Gap 10.2, BUN 9, Creatinine 1.10, Estimated Creat Clear 107, Estimated GFR 68, Est GFR ( Amer) 83, Glucose 136 H, Calcium 9.5 I & O for Last 24 hours: Intake & Output 07/21/20 07/22/20 07/23/20 07/24/20 11:59 11:59 11:59 11:59 Intake Total 240 / 240 1440 / 1440 Balance 240 / 240 1440 / 1440 Weight 228 lb 5.43 oz 234 lb 7 oz 233 lb 11.04 oz - Constitutional no acute distress - *Routine HEENT Exam Head: Present: normocephalic Eye: Present: PERRL ENT: Present: mucous membranes moist - *Routine Neck Exam Present: supple. Absent: lymphadenopathy - *Routine Respiratory Exam Present: CTA bilaterally - *Routine Cardiovascular Exam Present: RRR - *Routine Abdominal Exam Present: soft, normoactive bowel sounds. Absent: tenderness - *Routine Extremities Exam Present: normal capillary refill. Absent: cyanosis, clubbing, edema - *Routine Skin Exam Present: warm. Absent: rash - *Routine Neurological Exam Present: alert, oriented X3 - Routine Psychiatric Exam Present: normal affect Assessment and Plan (1) Non-ST elevated myocardial infarction (non-STEMI) Status: Acute Category: Medical Code(s): I21.4 - Non-ST elevation (NSTEMI) myocardial infarction (2) Unstable angina Status: Acute Category: Medical Code(s): I20.0 - Unstable angina (3) Right bundle branch block Status: Chronic Category: Medical Code(s): I45.10 - Unspecified right bundle-branch block (4) Tobacco dependence syndrome Status: Chronic Category: Medical Code(s): F17.200 - Nicotine dependence, unspecified, uncomplicated (5) HLD (hyperlipidemia) Status: Chronic Qualifiers: Hyperlipidemia type: unspecified Qualified Code(s): E78.5 - Hyperlipidemia, unspecified Category: Medical Code(s): E78.5 - Hyperlipidemia, unspecified (6) HTN (hypertension) Status: Chronic Qualifiers: Hypertension type: essential hypertension Qualified Code(s): I10 - Essential (primary) hypertension Category: Medical Code(s): I10 - Essential (primary) hypertension (7) Diabetes mellitus Status: Chronic Qualifiers: Diabetes mellitus type: type 2 Diabetes mellitus senior care insulin use: unspecified terminal 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 transplanted heart: knik heart Associated angina: with other forms of angina Qualified Code(s): I25.118 - Atherosclerotic heart disease of [place] coronary artery with other forms of angina pectoris Category: Medical Code(s): I25.10 - Atherosclerotic heart disease of [place] coronary artery without angina pectoris (9) Overweight (BMI 25.0-29.9) Status: Acute Category: Medical Code(s): E66.3 - Overweight (10) Cardiomyopathy Status: Acute Qualifiers: Cardiomyopathy type: unspecified Qu
[2020-07-23 14:50] LABS: CATHL Activated Clotting Time > 400 SEC (74-125)
--- NOTE | 2020-07-23 15:06 | PC.NURSE ---
Report given to Denisha Devi RN.
--- NOTE | 2020-07-23 16:11 | HMH.DCSUM ---
General - General Admission date:: 07/21/20 Discharge date: 07/23/20 HPI HPI: this pt with hx of abn myoview presents to the ed -patient arrives by ambulance with complaint of chest pain. Says the chest pain started an hour ago while at rest. Describes the pain in his anterior chest radiating to his right jaw. Currently 2/10, was 8/10 at onset. Denies shortness of breath but he did have nausea with it. States he has coronary artery disease with stent placement proximately 15 years ago. Just recently saw Dr. De Luna in the office couple of days ago and has been set up for a left heart cath. States his ejection fraction is 35%. States he also had an episode of chest pain last night that lasted 2-1/2 hours. He had diaphoresis with that, but not today. The patient is a smoker. He is treated for hypertension and hyperlipidemia and diabetes. pt was admitted for eval and treatment Hospital Course Hospital Course: Laboratory Tests 07/21/20 07/21/20 07/21/20 18:07 18:07 19:14 WBC 10.7 RBC 5.19 Hgb 15.0 Hct 44.7 MCV 86.2 MCH 29.0 MCHC 33.6 RDW 14.1 Plt Count 272 MPV 7.6 Neut % (Auto) 69.8 Lymph % (Auto) 22.9 [place] % (Auto) 4.6 Eos % (Auto) 2.4 Baso % (Auto) 0.3 Neut # (Auto) 7.5 Lymph # (Auto) 2.5 [place] # (Auto) 0.5 Eos # (Auto) 0.3 Baso # (Auto) 0.0 Activated Clotting Time Sodium 141 Potassium 3.6 Chloride 105 Carbon Dioxide 25 Anion Gap 14.6 BUN 8 L Creatinine 1.00 Estimated Creat Clear 121 Estimated GFR 76 Est GFR ( Amer) 92 Glucose 112 H POC Glucose Calcium 9.8 Total Bilirubin Direct Bilirubin Conjugated Bilirubin Indirect Bilirubin Unconjugated Bilirubin AST ALT Alkaline Phosphatase Troponin I 0.05 H Total Protein Albumin Chlamy pneumoniae PCR Not detected Adenovirus (PCR) Not detected B. pertussis DNA (PCR) Not detected Coronavirus OC43 (PCR) Not detected Coronavirus HKU1 (PCR) Not detected Coronavirus 229E (PCR) Not detected SARS-CoV-2 (PCR) Not detected Coronavirus NL63 (PCR) Not detected Human Metapneumovir PCR Not detected Influenza A (H1) PCR Not detected Influ A (H1N1/09) PCR Not detected Influenza A (H3) PCR Not detected Influenza Type A (PCR) Not detected Influenza Type B (PCR) Not detected M. pneumoniae (PCR) Not detected Parainfluenza 1 (PCR) Not detected Parainfluenza 2 (PCR) Not detected Parainfluenza 3 (PCR) Not detected Parainfluenza 4 (PCR) Not detected RSV (PCR) Not detected Entero/Rhino (PCR) Not detected 07/21/20 07/21/20 07/22/20 21:44 21:58 00:40 WBC RBC Hgb Hct MCV MCH MCHC RDW Plt Count MPV Neut % (Auto) Lymph % (Auto) [place] % (Auto) Eos % (Auto) Baso % (Auto) Neut # (Auto) Lymph # (Auto) [place] # (Auto) Eos # (Auto) Baso # (Auto) Activated Clotting Time Sodium Potassium Chloride Carbon Dioxide Anion Gap BUN Creatinine Estimated Creat Clear Estimated GFR Est GFR ( Amer) Glucose POC Glucose 197 H Calcium Total Bilirubin Direct Bilirubin Conjugated Bilirubin Indirect Bilirubin Unconjugated Bilirubin AST ALT Alkaline Phosphatase Troponin I 0.33 H 0.62 H Total Protein Albumin Chlamy pneumoniae PCR Adenovirus (PCR) B. pertussis DNA (PCR) Coronavirus OC43 (PCR) Coronavirus HKU1 (PCR) Coronavirus 229E (PCR) SARS-CoV-2 (PCR) Coronavirus NL63 (PCR) Human Metapneumovir PCR Influenza A (H1) PCR Influ A (H1N1/09) PCR Influenza A (H3) PCR Influenza Type A (PCR) Influenza Type B (PCR) M. pneumoniae (PCR) Parainfluenza 1 (PCR) Parainfluenza 2 (PCR) Parainfluenza 3 (PCR) Parainfluenza 4 (PCR) RSV (PCR) Entero/Rhino (PCR)
--- NOTE | 2020-07-23 17:45 | PC.NURSE ---
1725 tracelet removed at this time, tolerated well by pt. No active bleeding noted. Area cleaned and covered with 4x4 and tegaderm. Discharge home order has been entered on the pt. Pt reports that he does not have family/friends to get him back to [facility]. I personally called [facility] and was told that the company car is currently out of service and that it would be better if pt stayed at [facility] as they are short staffed. 1745 Spoke to Aysha Hung in care management, notified of situation. Abhilash reports that she will see what she can arrange and update nurse.
--- NOTE | 2020-07-23 18:02 | PC.NURSE ---
Javier Spoke to Aysha Hung on the phone, reports that discharge will be cancelled as pt will need PT/OT eval tomorrow prior to discharge.
--- NOTE | 2020-07-23 18:29 | PC.NURSE ---
1354 Report received from Petrona Campbell RN
[2020-07-23 21:05] LABS: POC Glucose,Bedside 122 (70-110)
[2020-07-23 22:03] LABS: POC Glucose,Bedside 172 (70-110)
[2020-07-24] VITALS: BP 118/67; PULSE 59; RESP 16; TEMP 36.7; O2SAT 97
[2020-07-24 04:00] VITALS: BP 118/73; PULSE 53; RESP 16; TEMP 36.7; O2SAT 97
[2020-07-24 05:24] VITALS: BMI 29.0
--- NOTE | 2020-07-24 06:55 | PC.NURSE ---
no acute changes since prior assessment, pt has rested well t/o shift, no reports of chest pain, has had a great appetite and fluid intake,
[2020-07-24 07:02] LABS: Basophils % 0.3 % (0.1-2.0); Eosinophils # 0.2 K/mm3 (0.0-0.4); Eosinophils % 2.7 % (0.1-12.0); Hematocrit 40.5 % (42.0-52.0); Hemoglobin 13.7 g/dL (14.1-18.0); Lymphocytes % 25.5 % (10-50); Mean Corpuscular HGB Conc 33.9 g/dL (31.8-35.4); Mean Corpuscular Hemoglobin 29.7 pg (27.0-31.2); Mean Corpuscular Volume 87.7 fl (80-94); Mean Platelet Volume 7.8 fl (7.4-10.4); Monocytes # 0.5 K/mm3 (0.1-1.0); Monocytes % 5.7 % (1.7-9.3); Neutrophils # 5.3 K/mm3 (1.8-7.8); Neutrophils % 65.8 % (37.0-80.0); Platelet Count 225 K/mm3 (142-424); Red Blood Count 4.62 M/mm3 (4.60-6.20)
[2020-07-24 07:13] LABS: Anion Gap 10.2 mEq/L (5-15); Blood Urea Nitrogen 7 mg/dl (9-20); Calcium 9.2 mg/dl (8.4-10.2); Carbon Dioxide 29 mmol/L (22.0-30.0); Chloride 104 mmol/L (98-107); Creatinine Clearance Estimated 118 mL/min (50-200); Estimated Glomerular Filt Rate 76 ml/min (>60); GFR (African American) 92 ML/MIN (>60); Glucose 143 mg/dl (74-100); Potassium 4.2 mmoL/L (3.5-5.1); Sodium 139 mmol/L (136-145)
[2020-07-24 07:33] VITALS: BP 104/59; PULSE 63; RESP 20; TEMP 36.6; O2SAT 99
--- NOTE | 2020-07-24 08:47 | HMH.PTEV ---
Physical Therapy Evaluation Rehab PT IP Evaluation Start: 07/23/20 17:55 Freq: ONCE Status: Active Protocol: Document 07/24/20 08:45 CORRIE (Rec: 07/24/20 08:47 CORRIE [id number]) Subjective/History History History This is the initial IP PT evaluation for Jimmie La. Pt is a 60 y/o male [facility] for chest pain - s/p stent placement Subjective Subjective no complaints from pt Rehab PT IP Eval Objective Appearance Patient Behavior Appropriate,Cooperative Patient Orientation Person,Place,Time Difficulty following instructions none Speech Pattern Clear,Difficulty Finding Words Ambulation Patient Able to Ambulate Yes Ambulation Observation IP General Gait Pattern Observation No Deviations/Normal Ambulation Distance (feet) 60 Ambulation Assistive Device None Ambulation Ability Independent Balance Ability to Arise Able, w/o using arms Sitting Balance Steady, safe Standing Balance Narrow stance w/o support Dynamic Sitting Balance Ability Normal Dynamic Standing Balance Ability Normal Transfers Bed Transfer Ability Independent Chair Transfer Ability Independent Sit to Stand Bed Transfer Ability Independent Sit to Stand Chair Transfer Ability Independent ROM All Extremities PT ROM Status WFL MMT All Extremities PT MMT WFL Rehab PT IP prob,goals,plan Problems Date of Evaluation: 07/24/20 Rehab Potential Rehab Potential Innapropriate for Skilled Therapy Discharge Plan PT Discharge Plan DC pt to [facility] once medically stable G -code Required No PHYSICIAN CERTIFICATION: I certify the specified therapy services for Jimmie La are required, authorized, and reviewed every 30 days.
--- NOTE | 2020-07-24 08:56 | HMH.ACPN2 ---
Internal Medicine - PN: Subj *Date: 07/24/20 *Time: 09:29 Interval history: 60-year-old male patient resting quietly in bed with eyes closed, awakens to verbal stimuli. He denies any chest pain or shortness of breath during the night. PT/OT have seen and declared him him to be discharged back to [facility]. He will be D/C today Exam Vital signs and Labs for Last 24 Hours: Temp Pulse Resp BP Pulse Ox 97.9 F 63 20 104/59 L 99 07/24/20 07:33 07/24/20 07:33 07/24/20 07:33 07/24/20 07:33 07/24/20 07:33 Laboratory Results - last 24 hr 07/23/20 09:18: WBC 7.9 D, RBC 4.89, Hgb 14.3, Hct 42.2, MCV 86.4, MCH 29.2, MCHC 33.8, RDW 14.0, Plt Count 231, MPV 8.4, Neut % (Auto) 71.6, Lymph % (Auto) 20.1, [place] % (Auto) 5.3, Eos % (Auto) 2.6, Baso % (Auto) 0.3, Neut # (Auto) 5.6, Lymph # (Auto) 1.6, [place] # (Auto) 0.4, Eos # (Auto) 0.2, Baso # (Auto) 0.0 07/23/20 09:18: Sodium 141, Potassium 4.2, Chloride 106, Carbon Dioxide 29, Anion Gap 10.2, BUN 9, Creatinine 1.10, Estimated Creat Clear 107, Estimated GFR 68, Est GFR ( Amer) 83, Glucose 136 H, Calcium 9.5 07/23/20 14:15: Activated Clotting Time > 400 H* 07/23/20 16:50: POC Glucose 172 H 07/23/20 20:48: POC Glucose 122 H 07/24/20 06:21: WBC 8.0, RBC 4.62, Hgb 13.7 L, Hct 40.5 L, MCV 87.7, MCH 29.7, MCHC 33.9, RDW 14.0, Plt Count 225, MPV 7.8, Neut % (Auto) 65.8, Lymph % (Auto) 25.5, [place] % (Auto) 5.7, Eos % (Auto) 2.7, Baso % (Auto) 0.3, Neut # (Auto) 5.3, Lymph # (Auto) 2.0, [place] # (Auto) 0.5, Eos # (Auto) 0.2, Baso # (Auto) 0.0 07/24/20 06:21: Sodium 139, Potassium 4.2, Chloride 104, Carbon Dioxide 29, Anion Gap 10.2, BUN 7 L, Creatinine 1.00, Estimated Creat Clear 118, Estimated GFR 76, Est GFR ( Amer) 92, Glucose 143 H, Calcium 9.2 I & O for Last 24 hours: Intake & Output 07/21/20 07/22/20 07/23/20 07/24/20 23:59 23:59 23:59 23:59 Intake Total 240 / 240 960 / 1440 480 / 960 480 / 480 Output Total 0 / 0 Balance 240 / 240 960 / 1440 480 / 960 480 / 480 Weight 227 lb 9 oz 228 lb 5.43 oz 233 lb 11.04 oz 233 lb 12.8 oz - Constitutional no acute distress, disheveled - *Routine HEENT Exam Head: Present: normocephalic Eye: Present: EOMI ENT: Present: mucous membranes moist - *Routine Neck Exam Present: trachea midline. Absent: tracheal deviation - *Routine Respiratory Exam Present: CTA bilaterally. Absent: accessory muscle use - *Routine Cardiovascular Exam Present: RRR. Absent: tachycardia - *Routine Abdominal Exam Present: soft, normoactive bowel sounds. Absent: tenderness, guarding - *Routine Extremities Exam Present: full ROM, pulses intact. Absent: cyanosis, clubbing, calf tenderness - *Routine Skin Exam Present: intact, dry, warm. Absent: cyanosis, erythema - *Routine Neurological Exam Present: alert, oriented X3, normal speech. Absent: motor deficit - Routine Psychiatric Exam Present: normal affect, normal thought process, cooperative. Absent: auditory hallucinations Assessment and Plan (1) Non-ST elevated myocardial infarction (non-STEMI) Status: Acute Category: Medical Code(s): I21.4 - Non-ST elevation (NSTEMI) myocardial infarction (2) Unstable angina Status: Acute Category: Medical Code(s): I20.0 - Unstable angina (3) Right bundle branch block Status: Chronic Category: Medical Code(s): I45.10 - Unspecified right bundle-branch block (4) Tobacco dependence syndrome Status: Chronic Category: Medical Code(s): F17.200 - Nicotine dependence, unspecified, uncomplicated (5) HLD (hyperlipidemia) Status: Chronic Qualifiers: Hyperlipidemia type: unspecified Qualified Code(s): E78.5 - Hyperlipidemia, unspecified Category: Medical Code(s): E78.5 - Hyperlipidemia, unspecified (6) HTN (hypertension) Status: Chronic Qualifiers: Hypertension type: essential hypertension Qualified Code(s): I10 - Essential (primary) hypertension Category: Medical Code(s): I10 - [facility]
--- NOTE | 2020-07-24 09:09 | HMH.OTEV ---
OT Inpatient Evaluation Rehab OT IP Evaluation Start: 07/23/20 17:55 Freq: ONCE Status: Complete Protocol: Document 07/24/20 08:58 SANTINO (Rec: 07/24/20 09:08 [id number] Rehab OT IP Assessment Subjective History Pt was oriented x 3 on arrival and agreeable to engage in therapy evaluation. Pt was admitted via ED on 07/21/20 due to chest pain. Pt has a past medical history of Anxiety, CAD, DM type 2, GERD, Hyperlpidemia, HTN. Pt reports he lived at [facility] prior to being hospitalized. Pt reports he was independent with all ADLs and most IADLs. He did report they would do cooking for him. Pt did no require any AE during abmulation. 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 Objective Patient Orientation Person,Place,Birthday Upper Extremity Gross ROM WFL Bed Mobility bed mobility-scooting,bed mobility - supine/sit,bed mobility - rolling Assist Level Supervision/Stand by Transfer Training Sit/Stand Transfer Assist Level Supervision/Stand by Chair Transfer Ability Supervision/Stand by Chair Transfer Technique Sit to/from Ambulatory Chair Transfer Assistive Devices None Lower Body Dressing Ability Standby Assistance Overall Commode/Toilet Transfer Ability Standby Assistance Commode/Toilet Transfer Technique Sit to/from Ambulatory Rehab OT IP prob,goals,plan Problems Date of Evaluation: 07/24/20 Rehab Potential Rehab Potential Innapropriate for Skilled Therapy Equipment Needs Assistive Devices None / NA Discharge Plan OT Discharge Plan Pt is safe to return back to [facility] once medically stable per physician. Eval Complexity Eval Charge Codes 63347 - Moderate Complexity G Codes G -code Required No PHYSICIAN CERTIFICATION: I certify the specified therapy services for Jimmie La are required, authorized, and reviewed every 30 days.
--- NOTE | 2020-07-24 10:33 | HMH.PHACLD ---
Jimmie La has received discharge medication counseling on the following medications: BISOPROLOL 5MG ASPIRIN 91MG BRILINTA 90MG PATIENT IS ALREADY TAKING LISINOPRIL AND ATORVASTATIN. NEW PRESCRIPTIONS WERE SENT TO CLINIC PHARMACY. PATIENT IS PART OF MOT PROGRAM THERE. SPOKE TO HOOD AT CLINIC PHARMACY AND WAS ASSURED THAT NEW MEDICATIONS WOULD BE DELIVERED TO PATIENT TODAY. METFORMIN IS TO BE HELD UNTIL 07/25/20. PATIENT IS TO CONTINUE ALL OTHER HOME MEDICATIONS. PATIENT VERBALIZED UNDERSTANDING AND HAD NO QUESTIONS AT THIS TIME. -NASREEN EWING, BRYAND
[2020-07-24 11:29] VITALS: BP 144/85; PULSE 60; RESP 18; TEMP 36.6; O2SAT 98
[2020-07-24 12:35] LABS: POC Glucose,Bedside 153 (70-110)
== END 2020-07-24 12:07 | disposition home or self-care (01) ==
LOC: ER 19:07 → 2ND 19:34
PROVIDERS: Internal Medicine; Nurse Practitioner Family; Admitting Provider Internal Medicine Adolescent Medicine; Emergency Provider Emergency Medicine; Visit Provider Emergency Medicine
DX: E11.69 Type 2 diabetes mellitus with other specified complication (principal); E78.5 Hyperlipidemia, unspecified; Z72.0 Tobacco use; I10 Essential (primary) hypertension; I25.110 Atherosclerotic heart disease of native coronary artery with unstable angina pectoris; I42.9 Cardiomyopathy, unspecified; R94.31 Abnormal electrocardiogram [ECG] [EKG]; R94.39 Abnormal result of other cardiovascular function study; I21.4 Non-ST elevation (NSTEMI) myocardial infarction; Z79.84 Long term (current) use of oral hypoglycemic drugs; Z79.899 Other long term (current) drug therapy
CPT/HCPCS: 36415; 71046; 80048; 80076; 82962; 84484; 85025; 85347; 87581; 87633; 87798; 92928; 93005; 93458; 96375; 97166; 99152; 99153; 99284; C1725; C1760; C1769; C1874; C1876; C9600; G0378; J1644; J2405; Q9967; U0003

== ENCOUNTER 2020-08-17 12:54 | Outpatient (RCR) | payer MEDICARE, SELFPAY | END 2020-10-10 09:41 | disposition home or self-care (01) | LOC: PT 12:54 | PROVIDERS: Visit Provider Internal Medicine | DX: Z95.5 Presence of coronary angioplasty implant and graft (principal) ==

== ENCOUNTER → 2020-08-21 14:13 | Outpatient (CLI) | payer MEDICARE, SELFPAY ==
--- NOTE | 2020-08-21 14:16 | CA_ITS ---
APPROVED REPORT EXAM: Limited 2D Echocardiogram [employer] Coordinator: Jessica Henry RVT Ht: 6 ft 2 in Wt: 224lbs BSA: 2.28 BP: 118/75 mmHg Indications: EF CHECK, EF OF 34% ON RECENT STRESS TEST, EF OF 50% ON LAST ECHO 06/17 HTN,SMOKER,ARCE,HLD M-Mode Dimensions RVDd 3.65 cm (0.9-2.6) LA Diam 3.77 cm (1.9-4.0) LVDd 5.87 cm (3.5-5.7) Ao Diam 3.11 cm (2.0-3.7) LVDs 4.53 cm (3.5-5.7) IVSd 0.63 cm (0.6-1.1) PWd 0.51 cm (0.6-1.1) EF (Teich) 45.20% FS 22.80% EDV (Teich) 171.20 mL ESV (Teich) 93.90 mL Conclusion 1. Limited study was performed to evaluate left ventricular systolic function, visually estimated ejection fraction approximately 45 to 50% with no obvious regional wall motion abnormality. 2. No significant pericardial effusion noted. Electronically signed by : Leon Garcia, 08/21/2020 21:29:00
== END ==
PROVIDERS: PCP Emergency Medicine; Visit Provider Internal Medicine
DX: E78.5 Hyperlipidemia, unspecified (principal); F17.200 Nicotine dependence, unspecified, uncomplicated; I10 Essential (primary) hypertension; I25.118 Atherosclerotic heart disease of native coronary artery with other forms of angina pectoris; I42.9 Cardiomyopathy, unspecified; R06.00 Dyspnea, unspecified
CPT/HCPCS: 93308